=== PATIENT | male | born 1975 | race Caucasian/White ===

== ENCOUNTER 2017-03-01 21:15 | Emergency (ER) | payer MEDICAID, OTHER ==
[~2017-03-01] VITALS: Ht 177.8 cm; Wt 75.0 kg
[~2017-03-01 21:15] MED LIST: LORT7.5T3 PO; TRAM50 PO
[2017-03-01 21:18] VITALS: BP 154/86; PULSE 72; RESP 14; TEMP 98.4; O2SAT 98
--- NOTE | 2017-03-01 21:52 | PD ---
HPI Chief Complaint: Injury Time Seen by Provider: 21:52 Travel History International Travel<30 days: No Contact w/Intl Traveler<30days: No Traveled to known affect area: No History of Present Illness HPI 41-year-old male who is right handed presents to the emergency department for evaluation of left third digit injury sustained yesterday when his finger got caught on a door. It did not get smashed. He states that he felt a pop and has noticed the finger swollen and bruised moderate pain. Pain exacerbated with flexion and extension. Has no other symptoms to report. PFSH Past Medical History Medical History: Denies Significant Hx Cancer: No Cardiovascular Problems: No Diminished Hearing: No Genitourinary: No Musculoskeletal: No Neurologic: No Psychiatric: No Reproductive: No Respiratory: No Past Surgical History Abdominal Surgery: Yes (appendectomy) Appendectomy: Yes Social History Alcohol Use: Yes (States 2x monthly has a few drinks.) Tobacco Use: No Substance Use: No (Denies.) Allergies-Medications (Allergen,Severity, Reaction): Coded Allergies: No Known Allergies (Unverified , 03/01/17) Reported Meds & Prescriptions Reported Meds & Active Scripts Active Ultram (Tramadol HCl) 50 Mg Tab 1 Tab PO Q4HPRN FOR PAIN Reported Lortab 7.5/500 (Acetaminophen/Hydrocodone Bitart) Tab 1 Tab PO Q4HPRN FOR PAIN Review of Systems Except as stated in HPI: all other systems reviewed are Neg Physical Exam Narrative GENERAL: Well-nourished, well-developed male patient in no acute distress SKIN: Focused skin assessment warm/dry. Ecchymosis on the dorsal and volar surface of the proximal left third digit. HEAD: Normocephalic. EYES: No scleral icterus. No injection or drainage. NECK: Supple, trachea midline. No JVD or lymphadenopathy. CARDIOVASCULAR: Regular rate and rhythm without murmurs, gallops, or rubs. RESPIRATORY: Breath sounds equal bilaterally. No accessory muscle use. GASTROINTESTINAL: Abdomen soft, non-tender, nondistended. MUSCULOSKELETAL: No cyanosis. Mild edema of the proximal left third digit. Patient has full flexion and extension of the affected digit. Sensation intact distal affected digit. Cap refill within normal limits. BACK: Nontender without obvious deformity. No CVA tenderness. Data Data Last Documented VS Vital Signs Date Time Temp Pulse Resp B/P Pulse Ox O2 Delivery O2 Flow Rate FiO2 03/01/17 21:18 98.4 72 14 154/86 98 Room Air Orders Finger ([id number]) (03/01/17 ) Splint Or Brace Apply/Monitor (03/01/17 22:10) Finger Splint (03/01/17 ) MDM Medical Decision Making Medical Screen Exam Complete: Yes Emergency Medical Condition: Yes Medical Record Reviewed: Yes Differential Diagnosis Finger sprain versus fracture versus tendon injury versus contusion Narrative Course 41-year-old male presents to emergency department for evaluation of left third digit pain. X-ray imaging shows soft tissue swelling with no bony abnormality. Patient is placed in a finger splint and counseled on care for a sprain. He is encouraged to seek hand specialist evaluation if symptoms persist. He agrees to return immediately with any acute worsening of symptoms. Diagnosis Primary Impression: Sprain of middle finger Qualified Code: S63.653A - Sprain of metacarpophalangeal (MCP) joint of left middle finger, initial encounter Referrals: Hand Surgeon Primary Care Physician Patient Instructions: Finger Sprain (ED), General Instructions Additional Instructions: Splint for support and comfort Follow-up with a hand specialist Elevate reduce pain Tylenol and or ibuprofen as directed on the package as needed for pain Ice may also help to alleviate pain Return immediately to the emergency department with any acute worsening of symptoms Disposition: 01 DISCHARGE HOME Condition: Stable Cydney Weeks March 01, 2017 21:52
--- NOTE | 2017-03-01 22:19 | RADRPT ---
EXAM DATE/TIME: 03/01/2017 21:52 [facility] COMPARISON: No previous studies available for comparison. INDICATIONS : Left hand third digit pain. Patient states his third digit bent backwards. MEDICAL HISTORY : None. SURGICAL HISTORY : None. ENCOUNTER: Initial ACUITY: 1 day PAIN SCORE: 6/10 LOCATION: Left hand, third digit. FINDINGS: Examination of the third digit of the left hand demonstrates no evidence of fracture or dislocation. No radiopaque foreign bodies are seen. There is soft tissue swelling at the third digit proximally. CONCLUSION: Soft tissue swelling. No fracture seen. Walter Pérez MD on March 01, 2017 at 22:16 Board Certified Radiologist. This report was verified electronically.
== END 2017-03-01 22:40 | disposition home or self-care (01) ==
LOC: NEPK 21:15
DX: S63.653A Sprain of metacarpophalangeal joint of left middle finger, initial encounter (principal); X58.XXXA Exposure to other specified factors, initial encounter
CPT/HCPCS: 29130; 73140